=== PATIENT | female | born 1945 | race Caucasian/White ===

== ENCOUNTER 2021-12-07 17:26 | Inpatient (IN) | payer MEDICARE ==
[~2021-12-07] VITALS: Wt 59.9 kg
[2021-12-07] MEDS ORDERED: PROLIA60 MG/ML SQ (19:55)
[2021-12-07] MEDS ORDERED: TYLENOL 325MG325 MG PO (19:56)
[2021-12-07 20:48] VITALS: BP 118/44; PULSE 67; TEMP 97.8
[2021-12-08] VITALS (15 sets, daily range): BP systolic 97–135; BP diastolic 45–87; PULSE 65–78; TEMP 97.7–98.4
[2021-12-08 00:35] LABS: COLLECTION METHOD CATHETER
[2021-12-08 00:41] LABS: MUCOUS Present (NOT PRESENT); PH 8 (5-8); SQUAMOUS EPITHELIAL 0-2 /hpf (0-10); URINE APPEARANCE Hazy (CLEAR/HAZY); URINE BACTERIA None Seen /hpf (NONE SEEN); URINE BILIRUBIN Negative (NEGATIVE); URINE BLOOD 1+ (NEGATIVE); URINE CALCIUM OXALATE CRYSTAL Present (NOT PRESENT); URINE COLOR Yellow (YELLOW); URINE GLUCOSE Negative (NEGATIVE); URINE KETONE Negative (NEGATIVE); URINE LEUKOCYTE ESTERASE 2+ (NEGATIVE); URINE NITRATE Negative (NEGATIVE); URINE PROTEIN(semi-quant) 1+ (NEGATIVE); URINE RBC 20-50 /hpf (0-2); URINE UROBILINOGEN Negative (NEGATIVE)
--- NOTE | 2021-12-08 00:55 | NUR ---
PATIENT TO ROOM 325. ALERT BUT FORGETFUL. DENYING PAIN BUT DOES WINCE AND GROAN WITH MOVEMENT. PRN ROMERO WAS GIVEN. ICE TO L HIP. IV STARTED BY KASIE Hall FA, D5NS INFUSING AT 60 ML/HR. FIRST DOSE ROCEPHIN GIVEN. L WRIST IS SPLINTED. FINGERS WITH GOOD COLOR AND SENSATION. JONES TO DD WITH CLEAR YELLOW URINE. UA COLLECTED. TO BE NPO AT MIDNIGHT. MED RX AND ADMIT ASSESSMENTS COMPLETED.
[2021-12-08 06:43] LABS: BASO % 0.1 % (0.0-2.0); EOS # 0.1 K/mm3 (0.0-0.7); EOS % 1.4 % (0.0-4.0); GRAN # 6.1 K/mm3 (1.4-6.5); GRAN % 78.6 % (42.2-75.2); HEMOGLOBIN 10.8 g/dl (12.5-16.0); LYMPH % 12.6 % (20.0-51.0); MEAN CELL VOLUME 95 fl (80.0-100.0); MEAN CORPUSCULAR HEMOGLOBIN 31 pg (27-31); MEAN CORPUSCULAR HGB CONC 33 g/dl (33.0-37.0); MEAN PLATELET VOLUME 11.1 fl (7.4-10.4); MONO # 0.5 K/mm3 (0.1-0.6); MONO % 6.9 % (1.7-9.3); PLATELET COUNT 207 K/mm3 (130-400); REDCELL DISTRIBUTION WIDTH-CV 13.2 % (11.5-14.5)
[2021-12-08 06:46] LABS: HEMATOCRIT 33.2 % (37.0-47.0)
[2021-12-08 06:57] LABS: CALCIUM 7.8 mg/dL (8.4-10.2); CREATININE, serum 0.62 mg/dL (0.57-1.11); POTASSIUM 3.5 mmol/L (3.5-4.5)
[2021-12-08 08:15] LABS: INR 1.1 (0.8-3.0)
--- NOTE | 2021-12-08 10:24 | NUR ---
The patient has dementia. KELLEN contacted the patient's daughter, Jael Chiang (ph# [phone]), to discuss discharge plan. The patient lives alone in the [facility]. Jael reports that the patient has been independent with ADLs and does not have any DME. The patient's PCP is Dr. Aliyah Alexandre. Jael states that the patient does not take any medications, but if she needed anything, she would utilize [facility]. The patient does not have a DPOA-HC in EMR. Jael states that she is the patient's DPOA-HC and that their bank has a copy. She states that she plans on contacting the bank and having them fax the document to the surgical unit. KELLEN provided Jael keon the fax number to the surgical unit. Jael states that the patient is and that she is the patient's only child. The patient has a hip fracture and it to tentatively have surgery today. KELLEN discussed post-acute rehab. Jael states that she is interested in rehab for the patient and that Dr. Alexandre said he would accept her at [facility]. Jael states that they are her first preference. She does not have a second preference at this time. KELLEN contacted Debbie at [facility]. SW student faxed her the referral. Awaiting screen. *Discharge plan: Swing Bed*
--- NOTE | 2021-12-08 12:34 | NUR ---
First visit from the estate planning director. No needs right now.
--- NOTE | 2021-12-08 12:46 | NUR ---
PATIENT IV SITE RIGHT FOREARM INFILTRATED. ARM NOTED TO BE SWOLLEN AND TENDER TO TOUCH. FLUIDS STOPPED AND IV REMOVED.
--- NOTE | 2021-12-08 13:14 | NUR ---
NEW IV PLACED TO RIGHT WRIST. PATENT WITH GOOD BLOOD RETURN. FLUIDS RUNNING AT 60
--- NOTE | 2021-12-08 14:40 | NUR ---
PATIENT TAKEN TO OR
--- NOTE | 2021-12-08 18:28 | NUR ---
PATIENT RECEIVED TO UNIT FROM OR. STABLE CONDITION. VITALS WNL. MILD TO NO PAIN AT THIS TIME. WILL CONT TO MONITOR
--- NOTE | 2021-12-09 01:32 | NUR ---
Report received from day shift nurse. Patient is resting quietly in her bed, daughter at the bedside. Full body assessment completed and vital signs are WNL. Patient has been taking PO meds without difficulty. Patient here due to left hip and wrist fx which was corrected today, 12/08/21. Patient is pleasant and alert but not completely oriented. Patient has frequently forgotten throughout the night as to why she is in the hospital. Staff has had to remind her multiple times that she had surgery. Patient had an episode during the evening where she had her legs flung over the edge of the bed and wanted to stand and stated "I'm just confused, I don't understand". Patients daughter called at approximately 2200 for an update on the patient. This nurse updated the daugther and she expressed understanding. Patient has no complaints of pain. Call light within reach.
[2021-12-09 05:32] VITALS: BP 109/43; PULSE 76; TEMP 97.8
--- NOTE | 2021-12-09 05:36 | NUR ---
Ice pack removed from left hip. Patient states that ice pack helped with her pain.
[2021-12-09 05:45] LABS: BASO % 0.1 % (0.0-2.0); GRAN # 7.5 K/mm3 (1.4-6.5); GRAN % 88.3 % (42.2-75.2); HEMOGLOBIN 10.8 g/dl (12.5-16.0); LYMPH # 0.4 K/mm3 (1.2-3.4); LYMPH % 4.5 % (20.0-51.0); MEAN CELL VOLUME 94 fl (80.0-100.0); MEAN CORPUSCULAR HEMOGLOBIN 31 pg (27-31); MEAN CORPUSCULAR HGB CONC 33 g/dl (33.0-37.0); MEAN PLATELET VOLUME 11.2 fl (7.4-10.4); MONO # 0.6 K/mm3 (0.1-0.6); MONO % 6.6 % (1.7-9.3); PLATELET COUNT 182 K/mm3 (130-400); RED BLOOD COUNT 3.54 M/mm3 (4.10-5.30); REDCELL DISTRIBUTION WIDTH-CV 12.8 % (11.5-14.5)
[2021-12-09 05:54] LABS: CALCIUM 7.5 mg/dL (8.4-10.2); CREATININE, serum 0.62 mg/dL (0.57-1.11); POTASSIUM 3.8 mmol/L (3.5-4.5)
[2021-12-09 06:07] LABS: HEMATOCRIT 33.1 % (37.0-47.0)
[2021-12-09 07:46] VITALS: BP 112/40; PULSE 68; TEMP 97.6
--- NOTE | 2021-12-09 08:49 | NUR ---
PT CONFUSED THIS AM. PULLED IV OUT. RESTARTED WITH 22 GA TO RFA. PT TOLERATED WELL. PT EATING BREAKFAST. DRESSING TO LEFT HIP AND LEFT WRIST CDI.
[2021-12-09 11:01] VITALS: BP 153/60; PULSE 81; TEMP 97.8
--- NOTE | 2021-12-09 11:58 | NUR ---
JONES CATHETER DISCONTINUED, PT BECOMING MORE AGITATED. NOTIFIED [facility]ITAL[facility]. PT REFUSING PAIN MEDS.
--- NOTE | 2021-12-09 13:36 | NUR ---
KELLEN staffed with the PA. The patient should be ready to discharge tomorrow. KELLEN contacted Debbie at [facility] to update on the above and follow up on the referral. Debbie reports that they are having difficulties with their fax machine and have not received the referral yet. She states that we can email her the referral. KELLEN emailed Debbie the referral. Debbie is aware tentative discharge is tomorrow. KELLEN contacted and updated the patient's daughter, Jael. Jael states that she is able to and plans on providing transport for the patient tomorrow to swing bed.
--- NOTE | 2021-12-09 14:51 | NUR ---
PT CONTINUES TO AGITATED AND NON COMPLIANT WITH STAYING IN CHAIR. CHAIR ALARMS IN PLACE. PT CONFUSION INCREASING AGITATION WITH STAFF. ASSIST X2 TO MOVE BACK IN CHAIR.
[2021-12-09 15:36] VITALS: BP 94/70; PULSE 102; TEMP 98.7
[2021-12-09 20:11] VITALS: BP 159/45; PULSE 100; TEMP 98
--- NOTE | 2021-12-09 22:38 | NUR ---
PATIENT WAS CONTENT AND PLEASANT AT START OF SHIFT. TOOK HS MEDS WITHOUT DIFFICULTY OR REFUSAL. IV TO R FA PATENT AND FLUSHES. L HIP SITE CDI WITH GAUZE AND TEGADERM. L WRIST SPLINTED, FINGERS ARE SWOLLEN AND BRUISED BUT GOOD BLOOD FLOW NOTED. AT APPROXIMATELY 2200, PATIENT BECAME INCREASINGLY AGITATED AND WANTED TO GO HOME. REASSURED HER THAT SHE WOULD BE LEAVING TOMORROW AND THAT ALYSA HER DAUGHTER WOULD PICK HER UP. WE CALLED DAUGHTER TOGETHER FOR ADDITIONAL REASSURANCE. PATIENT AGREEABLE BUT NOT HAPPY ABOUT IT. AMBULATED X2 ASSIST TO BED. CURRENTLY SITTING IN BED FIDGITING. BED ALARM ON. CALL LIGHT IN REACH.
[2021-12-10 00:40] VITALS: BP 145/70; PULSE 102; TEMP 98.1
--- NOTE | 2021-12-10 04:33 | NUR ---
PATIENT CALLED OUT FOR HELP AND UPON ENTRY SAW THAT HER WRIST SPLINT WAS OFF, CALL PLACED TO [employer] FOR HELP. DISCUSSED WITH [employer] RET[employer]ER SALES CONSULTANT AND CHER FROM ER IS COMING UP TO REDO HER THUMB SPICA.
[2021-12-10 04:38] VITALS: BP 126/53; PULSE 80; TEMP 98.4
[2021-12-10 06:25] LABS: BASO % 0.2 % (0.0-2.0); EOS # 0.1 K/mm3 (0.0-0.7); EOS % 1.3 % (0.0-4.0); GRAN # 6.9 K/mm3 (1.4-6.5); HEMOGLOBIN 11.3 g/dl (12.5-16.0); LYMPH # 1.7 K/mm3 (1.2-3.4); LYMPH % 17.7 % (20.0-51.0); MEAN CELL VOLUME 94 fl (80.0-100.0); MEAN CORPUSCULAR HEMOGLOBIN 31 pg (27-31); MEAN CORPUSCULAR HGB CONC 33 g/dl (33.0-37.0); MEAN PLATELET VOLUME 10.3 fl (7.4-10.4); MONO # 0.7 K/mm3 (0.1-0.6); MONO % 7.4 % (1.7-9.3); PLATELET COUNT 230 K/mm3 (130-400); RED BLOOD COUNT 3.69 M/mm3 (4.10-5.30); REDCELL DISTRIBUTION WIDTH-CV 13.2 % (11.5-14.5)
[2021-12-10 06:28] LABS: HEMATOCRIT 34.8 % (37.0-47.0)
--- NOTE | 2021-12-10 06:32 | NUR ---
PATIENT INCREASINGLY AGITATED. STANDING UP FROM CHAIR ON ROOM ENTRY. ATTEMPTED TO GET HER TO SIT DOWN BUT SHE WAS INSISTENT TO GO HOME. ATTEMPTED TO APPLY GAIT BELT. PATIENT REFUSING AND PUSHING ME OUT OF HER WAY. FIELD SAMPLING TECHNICIAN THEN IN ROOM TO ASSIST. STILL REFUSING ALL HELP. CALL PLACED TO DR. BARRIENTOS AND NOW ORDER FOR ZYPREXA ORDERED AND GIVEN. PATIENT RETURNED BACK TO ROOM AND IS CURRENTLY SITTING UP IN CHAIR CONVERSING WITH FIELD SAMPLING TECHNICIAN. BED ALARM ON.
[2021-12-10 06:44] LABS: CALCIUM 8.3 mg/dL (8.4-10.2); CREATININE, serum 0.68 mg/dL (0.57-1.11); POTASSIUM 3.3 mmol/L (3.5-4.5)
[2021-12-10 07:19] VITALS: BP 131/62; PULSE 95; TEMP 98.3
--- NOTE | 2021-12-10 10:11 | NUR ---
Assessment completed, alert but very disoriented, they reported agitation yesterday and over night but she is easy to redirect this morning and is calm, denies pain and does not appear to be in any acute distress/ discomfort, left wrist splint in place and patient continuously unwraps and trys to take it off, she did eat a little breakfast, she refused to work with OT this morning but PT was able to convince her to work with them/ she was able to ambulate to the door with walker assistance, spoke to daughter on the phone and discussed plan of care and discharge planning, also discussed patients care with social work who is helping to arrange transfer to SNF
[2021-12-10] MEDS ORDERED: ASPI325T6 PO (11:14)
[2021-12-10] MEDS ORDERED: ZYPREXA2.5 MG PO (11:16)
[2021-12-10 11:30] VITALS: BP 133/39; PULSE 89; TEMP 97.9
[2021-12-10] MEDS ORDERED: OMNICEF 300MG300 MG PO (11:50)
--- NOTE | 2021-12-10 13:09 | NUR ---
Debbie, at [facility], reports that they should be good to accept the patient; they will just need the doc-to-doc. The accepting provider today is Dr. Hunter ph#[phone]. KELLEN notified the hospitalist and provided her with Dr. Hunter's phone number. The doc-to-doc was done and Dr. Hunter has accepted the patient today. KELLEN followed up with the patient's daughter, Jael. Jael states that she is picking up her daughter to have her along for the ride to [facility]. She will be leaving their home around 1200. KELLEN read the IM form outloud to Jael over the phone. Jael verbalized understanding and is in agreement to discharge today. She gave KELLEN approval to sign the form on her behalf. KELLEN placed a copy of the form in the patient's room. The patient is to discharge today, 12/10, to [facility]. Transportation by private vehicle, via the patient's daughter. KELLEN notified Debbie at [facility] of tentative departure time. No additional needs at this time.
--- NOTE | 2021-12-10 14:09 | NUR ---
Discharging patient to [facility], I have called and given report to receiving nurse, SEGUNDO removed, discussed plan of care with richy whom is transporting her by private vehicle
== END 2021-12-10 14:11 | disposition swing bed (61) | DRG 480 ==
LOC: SURG 17:26
PROVIDERS: Orthopaedic Surgery Sports Medicine; Physician Assistant; Student in an Organized Health Care Education/Training Program; ADMIT Internal Medicine
PROC: 0QH734Z Insertion of Internal Fixation Device into Left Upper Femur, Percutaneous Approach (ICD-10-PCS; principal; 2021-12-08 15:00)
PROC: 0PSJ04Z Reposition Left Radius with Internal Fixation Device, Open Approach (ICD-10-PCS; 2021-12-08 15:00)
DX: S52.502A Unspecified fracture of the lower end of left radius, initial encounter for closed fracture (principal); S72.002A Fracture of unspecified part of neck of left femur, initial encounter for closed fracture; N39.0 Urinary tract infection, site not specified; S52.612A Displaced fracture of left ulna styloid process, initial encounter for closed fracture; M81.0 Age-related osteoporosis without current pathological fracture; M21.052 Valgus deformity, not elsewhere classified, left hip; F03.90 Unspecified dementia, unspecified severity, without behavioral disturbance, psychotic disturbance, mood disturbance, and anxiety; D64.9 Anemia, unspecified; W01.0XXA Fall on same level from slipping, tripping and stumbling without subsequent striking against object, initial encounter; Y93.89 Activity, other specified; Y92.098 Other place in other non-institutional residence as the place of occurrence of the external cause; Z87.891 Personal history of nicotine dependence
CPT/HCPCS: 99223-AI; 99231-AI; 99232-AI; 99239; A4565; A9284; C1713; J0690; J0696; J1100; J1170; J1885; J2250; J2405; J2704; J2795; J3010; J7040; J7042; J7121